=== PATIENT | male | born 1970 | race Hispanic/Latino ===

== ENCOUNTER → 2019-06-06 | Outpatient (CLI) | payer OTHER ==
[~2019-06-06] MED LIST: TYLENOL WITH C1 EACH PO; ZOFRAN4 MG PO
--- NOTE | 2019-06-06 13:56 | Diagnostic Imaging Report ---
X-ray KUB Comparison: 06/04/2019 History: Renal calculus Findings: On today's exam, 2 opacities are identified along the course of the left ureter. One measures approximately 5.5 mm and is superimposed on the transverse process of the third lumbar type vertebra. There is another opacity that measures approximately 7 mm and is situated approximately a centimeter below the first opacity also along the possible course of the left ureter. The superior opacity was not as visible on the previous exam. No opacities overlying the left kidney. Small opacities overlying the right renal outline likely represent bowel contents. A small right pelvic phlebolith. Impression: Noted again is presence of 2 calcific densities unchanged in position, overlying the expected course of the left ureter. Noncontrast stone protocol CT of abdomen and pelvis might be useful to further evaluate these opacities. Signed by: Waldemar Willoughby MD on 06/06/2019 1:52 PM
== END ==
LOC: RAD 12:01
PROVIDERS: ATTEND Urology
DX: N20.0 Calculus of kidney (principal)
CPT/HCPCS: 74018

== ENCOUNTER → 2019-06-07 | Day surgery (SDC) | payer OTHER ==
--- NOTE | 2019-06-04 12:11 | Diagnostic Imaging Report ---
EXAM: ABDOMEN-1VIEW (KUB) DATE: 06/04/2019 11:10 AM INDICATION: Preoperative evaluation, kidney stones COMPARISON: None FINDINGS/IMPRESSION: Bowel gas pattern appears nonobstructive. No pathologically dilated loops of bowel are identified. No intraperitoneal free air is appreciated. There is a 6 mm calcification identified projecting over the left mid abdomen. Findings may represent a urinary stone. Correlation with prior examinations is recommended. No other radiographically evident urinary calculi are appreciated. Suspected phlebolith noted within the right hemipelvis. No acute osseous abnormality is identified. Signed by: Dr. Ibrahima Richmond MD on 06/04/2019 12:08 PM
[~2019-06-07] MED LIST changes: +B&O 60MG R/S 60 MG SUPP PR ONE; +CEFTRIAXONE SOD 1 GM/NS 50 ML 50 ML IV ONE; +FENTANYL CITRATE/PF 100MCG/2 ML INJ ONE; +IOPAMIDOL 300MG/ML 50ML INFUS..BTL IV ONE; +MIDAZOLAM HCL 2 MG/2 ML VIAL ONE
--- OUTSIDE RECORDS SUMMARY | 2019-06-07 06:05 | XMS REPORT ---
Author Author [facility] Organization [facility] Address Unknown Phone Unavailable Care Team Providers Care Block Hand Name Role Phone LIZ RAMIREZ Unavailable Unavailable Payers Payer Name Policy Type Policy Number Effective Date Expiration D ate Problems This patient has no known problems. Allergies, Adverse Reactions, Alerts Allergy Name Allergy Type Status Severity Reaction(s) Onset Date Inacti ve Date Treating Clinician Comments STEROIDS DA Active MO 2019 00:00:00 Medications This patient has no known medications. Results Test Description Test Time Test Comments Text Results Atomic Results Result Comments ABDOMEN-1VIEW (KUB) 2019-06-06 13:47:00 [place] [address] Patient Name: DOMINIQUE CHERY MR #: [id number] : 1970 Age/Sex: 49/M Req #: [id number] Adm Physician: Ordered by: LIZ RAMIREZ MD Report #: [id number] Location: [facility] Room/Bed: Procedure: [id number] DX/ABDOMEN-1VIEW (KUB) Exam Date: 06/06/19 Exam Time: 1214 REPORT STATUS: Signed X-ray KUB Comparison: 06/04/2019 History: Renal calculus Findings: On today's exam, 2 opacities are identified along the course of the left ureter. One measures approximately 5.5 mm and is superimposed on the transverse process of the third lumbar type v ertebra. There is another opacity that measures approximately 7 mm and is situated approximately a centimeter below the first opacity also along the possible course of the left ureter. The superior opacity was not as visible on the previous exam. No opacities overlying the left kidney. Small opacities overlying the right renal outline likely represent bowel contents. A small right pelvic phlebolith. Impression: Noted again is presence of 2 calcific densities unchanged in position, overlying the expected course of the left ureter. Noncontrast stone protocol CT of abdomen and pelvis might be useful to further evaluate these opacities. Signed by: Scotty Leon MD on 06/06/2019 1:52 PM Dictated By: SCOTTY LEON MD 1352 Transcribed By: JOSE ALEJANDRO on 06/06/19 1352 COPY TO: LIZ RAMIREZ MD ABDOMEN-1VIEW (KUB) 2019-06-04 12:04:00 [place] [address] Patient Name: DOMINIQUE CHERY MR #: [id number] : 1970 Age/Sex: 49/M Req #: [id number] Adm Physician: Ordered by: LIZ RAMIREZ MD Report #: [id number] Location: OR Room/Bed: Procedure: [id number] DX/ABDOMEN-1VIEW (KUB) Exam Date: 04/28/20 Exam Time: 1110 REPORT STATUS: Signed EXAM: ABDOMEN-1VIEW (KUB) DATE: 06/04/2019 11:10 AM INDICATION: Preoperative evaluation, kidney stones COMPARISON: None FINDINGS/IMPRESSION: Bowel gas pattern appears nonobstructive. No pathologically dilated loops of bowel are identified. No i ntraperitoneal free air is appreciated. There is a 6 mm calcification identified projecting over the left mid abdomen. Findings may represent a urinary stone. Correlation with prior examinations is recommended. No other radiographically evident urinary calculi are appreciated. Suspected phlebolith noted within the right hemipelvis. No acute osseous abnormality is identified. Signed by: Dr. Ibrahima Richmond MD on 06/04/2019 12:08 PM Dictated By: IBRAHIMA RICHMOND MD 07 Transcribed By: JOSE ALEJANDRO on 06/04/191207 COPY TO: LIZ RAMIREZ MD URINALYSIS COMPLETE 2019 21:51:00 UA COLOR (test code = COLU) YELLOW YELLOW UA APPEARANCE (test code = APPU) CLEAR CLEAR UA GLUCOSE DIPSTICK (test code = DGLUU) NEGATIVE mg/dL NEGATIVE UA BILIRUBIN DIPSTICK (test code = BILU) NEGATIVE NEGATIV E UA KETONE DIPSTICK (test code = KETU) NEGATIVE mg/dL NEGATIVE UA SPECIFIC GRAVITY (test code = SGU) 1.010 1.001-1.03 5 UA BLOOD DIPSTICK (test code = ROCKY) 3+ (Large) NEGATIVE UA PH DIPSTICK (test code = YENNY) 6.5 5.0-8.0 UA PROTEIN DIPSTICK (test code = PROU) NEGATIVE mg/dL Neg-15 UA UROBILINIOGEN DIPSTICK (test code = URO) 0.2 mg/dL 0.0- 0.2 UA NITRITE DIPSTICK (test code = JENNIFER) NEGATIVE NEGATIVE UA LEUKOCYTE ESTERASE DIPSTICK (test code = LEUU) NEGATIVE uL NEGATIVE UA MICROSCOPIC NEEDED? (test code = UAMICRO) YES UA WBC (test code = WBCU) 0-5 per HPF 0-5 UA RBC (test code = RBCU) 50-100 per HPF 0-5 UA EPITHELIAL CELLS (test code = EPIU) Few (2-5/hpf) per HPF Few UA BACTERIA (test code = BACU) FEW per HPF NONE UA MUCUS (test code = MUCU) FEW per LPF NONE-FEW Urine Source? Clean CatchURINALYSIS [id number] 21:44:00* Test Item Value Reference Range Comments UA COLOR (test code = COLU) YELLOW YELLOW UA APPEARANCE (test code = APPU) CLEAR CLEAR UA GLUCOSE DIPSTICK (test code = DGLUU) NEGATIVE mg/dL NEGATIVE UA BILIRUBIN DIPSTICK (test code = BILU) NEGATIVE NEGATIV E UA KETONE DIPSTICK (test code = KETU) NEGATIVE mg/dL NEGATIVE UA SPECIFIC GRAVITY (test code = SGU) 1.010 1.001-1.03 5 UA BLOOD DIPSTICK (test code = ROCKY) 3+ (Large) NEGATIVE UA PH DIPSTICK (test code = YENNY) 6.5 5.0-8.0 UA PROTEIN DIPSTICK (test code = PROU) NEGATIVE mg/dL Neg-15 UA UROBILINIOGEN DIPSTICK (test code = URO) 0.2 mg/dL 0.0- 0.2 UA NITRITE DIPSTICK (test code = JENNIFER) NEGATIVE NEGATIVE UA LEUKOCYTE ESTERASE DIPSTICK (test code = LEUU) NEGATIVE uL NEGATIVE UA MICROSCOPIC NEEDED? (test code = UAMICRO) UA WBC (test code = WBCU) per HPF 0-5 UA RBC (test code = RBCU) per HPF 0-5 UA EPITHELIAL CELLS (test code = EPIU) per HPF Few UA BACTERIA (test code = BACU) per HPF NONE Urine Source? Clean Catch- CT ABD PELVIS [id number] 21:33:00 Name: VIK KLEINDOMINIQUE OSORIO [facility] FSED : 1970 Age/S: 48 / M [address] [facility] [address] Unit #: [id number] Loc: [address] Phys: Leo Knapp MD [place], [place] [address] Acct: [id number] Dis Date: Status: REG ER PHONE #: Exam Date: 05/30/20191 FAX #: Reason: left flank pain. kidney stone vs diverticulitis EXAMS: CPT CODE: [id number] CT ABD PELVIS W/CONT 16263 REASON FOR EXAM: left flank pain. kidney stone vs diverticulitis EXAM ORDER DATE: 2019 8:31 PM Ordering M.D.: Leo Knapp MD PROCEDURE: - CT ABD PELVIS W/CONT contrast-enhanced axial CT images were acquired through the abdomen/pelvis at 5 mm intervals. Sagittal and coronal reformatted images were generated. Automated exposure control was utilized for this reduction. Phases of contrast: venous and delayed COMPARISON: None FINDINGS: Visualized thorax: There is subsegmental atelectasis in the left lung base. Otherwise normal Hepatobiliary system: Hepatic steatosis Pancreas: Normal Spleen: Normal Adrenal glands: Normal Genitourinary system: There is a stone in the proximal left ureter that measures 5 mm. There is ipsilateral hydroureteronephrosis as well as suzy yed renal enhancement. The right kidney and right ureter and urinary bladd er and reproductive organs are within normal limits Gastrointestin al tract and appendix: Normal Abdominal vascular structures: Leta l Peritoneum and retroperitoneum: No free fluid or free air. No o mental or mesenteric masses. No abnormal lymph nodes. Muscu loskeletal structures and abdominal wall: Mild degenerative changes are pr esent in the spine IMPRESSION: Left-sided ureteral stone with evidence of obstruction. PAGE 1 Signed Report (CONTINUED) Name: DOMINIQUE CORONA [facility] lorna FSED : 1970 Age/S: 48 / M [address] [facility] Unit #: [id number] Loc: [address] Phys: Leo Knapp MD [place], [place] [address] Acct: [id number] Dis Date: Status: REG ER PHONE #: Exam Date: 05/30/20194 FAX #: Reason: left flank pain. kidney stone vs diverticulitis EXAMS: CPT CODE : [id number] CT ABD PELVIS W/CONT 82542 <Continued> Hepatic steatosis. Location: [facility] at 2133 Reported and signed by: Abilio Stanford MD CC: Leo Knapp MD Technologist:Renny Sauceda CTDI: DLP: Trnscb Date/Time: 2019 (2132) [email or web address] Orig Print D/T: S: 2019 (2135) PAGE 2 Signed Report BASIC METABOLIC [id number] 20:58:00* Test Item Value Reference Range Comments SODIUM (test code = NA) 143 mmol/L 128-145 POTASSIUM (test code = K) 3.9 mmol/L 3.5-5.1 CHLORIDE (test code = CL) 104.0 mmol/L 98-107 CARBON DIOXIDE (test code = CO2) 28.4 mmol/L 22-29 ANION GAP (test code = GAP) 15 mmol/L 10-20 GLUCOSE (test code = GLU) 100 mg/dL 70-110 BLOOD UREA NITROGEN (test code = BUN) 22 mg/dL 7-22 GLOMERULAR FILTRATION RATE (test code = GFR) 59 mL/min >=6 0 Estimated GFR by using Modified MDRD formula.Chronic kidney disease is defined as either kidney damageor GFR <60 mL/min/1.73 m2 for >3 months. CREATININE (test code = CREAT) 1.31 mg/dL 0.55-1.3 BUN/CREATININE RATIO (test code = BUN/CREA) 16.8 10-2 0 CALCIUM (test code = CA) 9.3 mg/dL 8.0-10.5 HEPATIC FUNCTION [id number] 20:58:00* Test Item Value Reference Range Comments TOTAL PROTEIN (test code = PROT) 8.9 gram/dL 6.1-7.8 ALBUMIN (test code = ALB) 4.6 g/dL 3.3-4.4 GLOBULIN (test code = GLOB) 4.3 G/DL 1-10 ALBUMIN/GLOBULIN RATIO (test code = A/G) 1.1 0.75-1. 50 BILIRUBIN TOTAL (test code = BILT) 0.80 mg/dL 0.2-1.2 BILIRUBIN DIRECT (test code = BILD) 0.20 mg/dL 0.0-0.30 SGOT/AST (test code = AST) 31 U/L 10-39 SGPT/ALT (test code = ALT) 55 U/L 10-69 ALKALINE PHOSPHATASE TOTAL (test code = ALKP) 97 U/L 50 -139 [id number] 20:58:00* Test Item Value Reference Range Comments LIPASE (test code = LIP) 140 Unit/L 144-286 BASIC METABOLIC [id number] 20:54:00* Test Item Value Reference Range Comments SODIUM (test code = NA) 143 mmol/L 128-145 POTASSIUM (test code = K) 3.9 mmol/L 3.5-5.1 CHLORIDE (test code = CL) 104.0 mmol/L 98-107 CARBON DIOXIDE (test code = CO2) 28.4 mmol/L 22-29 ANION GAP (test code = GAP) 15 mmol/L 10-20 GLUCOSE (test code = GLU) 100 mg/dL 70-110 BLOOD UREA NITROGEN (test code = BUN) 22 mg/dL 7-22 GLOMERULAR FILTRATION RATE (test code = GFR) 59 mL/min >=6 0 Estimated GFR by using Modified MDRD formula.Chronic kidney disease is defined as either kidney damageor GFR <60 mL/min/1.73 m2 for >3 months. CREATININE (test code = CREAT) 1.31 mg/dL 0.55-1.3 BUN/CREATININE RATIO (test code = BUN/CREA) 16.8 10-2 0 CALCIUM (test code = CA) 9.3 mg/dL 8.0-10.5 HEPATIC FUNCTION [id number] 20:54:00* Test Item Value Reference Range Comments TOTAL PROTEIN (test code = PROT) gram/dL 6.4-8.2 ALBUMIN (test code = ALB) g/dL 3.4-5.0 GLOBULIN (test code = GLOB) G/DL 1-10 ALBUMIN/GLOBULIN RATIO (test code = A/G) 0.75-1. 50 BILIRUBIN TOTAL (test code = BILT) mg/dL 0.0-1.0 BILIRUBIN DIRECT (test code = BILD) mg/dL 0.0-0.20 SGOT/AST (test code = AST) IUnit/L 15-37 SGPT/ALT (test code = ALT) IUnit/L 12-78 ALKALINE PHOSPHATASE TOTAL (test code = ALKP) IUnit/L 45 -117 [id number] 20:54:00* Test Item Value Reference Range Comments LIPASE (test code = LIP) U/L 73.0-393.0 CBC W/O [id number] 20:42:00* Test Item Value Reference Range Comments WHITE BLOOD CELL (test code = WBC) 9.8 K/mm3 4.5-12.5 RED BLOOD CELL (test code = RBC) 5.51 mill/mm3 4.0-5.8 HEMOGLOBIN (test code = HGB) 16.0 gram/dL 13.0-17.5 HEMATOCRIT (test code = HCT) 47.7 % 42.0-52.0 MEAN CELL VOLUME (test code = MCV) 86.6 fL 80-98 MEAN CELL HGB (test code = MCH) 29.0 picogram 27.0-33.0 MEAN CELL HGB CONCETRATION (test code = MCHC) 33.5 gram/dL 33 .0-36.0 RED CELL DISTRIBUTION WIDTH (test code = RDW) 12.9 % 11 .6-16.2 RED CELL DISTRIBUTION WIDTH SD (test code = RDW-SD) 41.8 fL 37.0-51.0 PLATELET COUNT (test code = PLT) 205 K/mm3 150-450 MEAN PLATELET VOLUME (test code = MPV) 10.4 fL 6.7-11.0
[2019-06-07 09:40] VITALS: BP 135/94
--- NOTE | 2019-06-07 10:12 | Operative Report ---
DATE OF PROCEDURE: 06/07/2019 SURGEON: Delmar Guerrero MD PREOPERATIVE DIAGNOSIS: Left proximal ureteral calculus. POSTOPERATIVE DIAGNOSIS: Left proximal ureteral calculus. PROCEDURES: 1. Staged shock wave lithotripsy. 2. Supervision of fluoroscopy. ANESTHESIA: General. ESTIMATED BLOOD LOSS: Minimal. COMPLICATIONS: None. INDICATIONS: Mr. Wright is a very pleasant 49-year-old male with a history of obstructing 6 x 6 mm right proximal ureteral calculus. He has failed trial of passages. He has been intermittently symptomatic and he has read extensively and has researched on the Internet regarding stent placement and he absolutely does not wish for this to be performed unless his kidney is completely blocked. He however, wishes to proceed with a shock wave lithotripsy in a staged fashion with the hopes that this may render him stone free. He voiced understanding of the options, alternatives, the risks, and benefits including doing nothing, shock wave lithotripsy, ureteroscopy, percutaneous surgery or open surgery. He voiced understanding of the options, alternatives, and elected to proceed. PROCEDURE IN DETAIL: After informed consent was obtained, the patient was taken to the operative suite, placed in supine on the operating table, underwent general anesthesia by Anesthesia Service. Stone was localized in the X, Y, and Z planes. A total of 3000 shocks on maximum power setting of 7 were delivered to the stone. The patient tolerated the procedure well and was transferred to the recovery room in excellent condition. Supervision of fluoroscopy: I was present for the entire procedure and supervised fluoroscopy. There was no radiologist present. Attempts were made to minimize radiation dosage per standard protocols. Dosage per treatment report. Delmar Guerrero MD ES/MODL /[id number] MTDD
== END | disposition home or self-care (01) ==
LOC: OR 06:03
PROVIDERS: ATTEND Urology
DX: N20.1 Calculus of ureter (principal); N13.30 Unspecified hydronephrosis; E66.01 Morbid (severe) obesity due to excess calories; I10 Essential (primary) hypertension; Z01.810 Encounter for preprocedural cardiovascular examination; Z01.812 Encounter for preprocedural laboratory examination; Z01.818 Encounter for other preprocedural examination; Z11.59 Encounter for screening for other viral diseases; Z68.33 Body mass index [BMI] 33.0-33.9, adult
CPT/HCPCS: 50590; 74018; 87635; 93005; J0696; J2250; J3010

== ENCOUNTER → 2019-06-19 | Outpatient (CLI) | payer OTHER ==
[~2019-06-19] MED LIST changes: -B&O 60MG R/S 60 MG SUPP PR ONE; -CEFTRIAXONE SOD 1 GM/NS 50 ML 50 ML IV ONE; -FENTANYL CITRATE/PF 100MCG/2 ML INJ ONE; -IOPAMIDOL 300MG/ML 50ML INFUS..BTL IV ONE; -MIDAZOLAM HCL 2 MG/2 ML VIAL ONE
--- NOTE | 2019-06-19 14:22 | Diagnostic Imaging Report ---
Exam: KUB - 2 views Indication: Hydronephrosis Comparison: KUB of 06/06/2019 Findings: The previously seen calcific densities overlying the expected course of the left ureter are no longer visualized. No radiographically apparent urinary calculi. Nonobstructive bowel gas pattern. No free air. Impression: No radiographically apparent urinary calculi. Signed by: Ermias Welch MD on 06/19/2019 2:11 PM
== END ==
LOC: RAD 12:50
PROVIDERS: ATTEND Urology
DX: N13.30 Unspecified hydronephrosis (principal)
CPT/HCPCS: 74018